=== PATIENT | male | born 1970 | race Caucasian/White ===

== ENCOUNTER 2019-01-06 18:53 | Emergency (ER) | payer OTHER ==
[~2019-01-06] VITALS: Ht 167.6 cm; Wt 68.2 kg
[2019-01-06 18:55] VITALS: Ht 167.6 cm; Wt 68.2 kg
[2019-01-06] MEDS ORDERED: LEVALBUTEROL (NEB) 1.25 MG/0.5 ML AMP INH STA (20:10)
[2019-01-06] MEDS ORDERED: predniSONE 20 MG TAB PO STA (20:10)
[2019-01-06] MEDS ORDERED: IPRATROPIUM (NEB) 0.5 MG/2.5 ML AMP NEB STA (20:10)
[2019-01-06] MEDS ORDERED: ATRO INH (21:33)
[2019-01-06] MEDS ORDERED: PRED20TA PO (21:33)
[2019-01-06] MEDS ORDERED: ALBU2.5V3 NEB (21:33)
[2019-01-06] MEDS ORDERED: SYMB80120 INHALATION (21:33)
--- NOTE | 2019-01-06 21:34 | ERD ---
ER Documentation Chief Complaint Chief Complaint ASTHMA EXCERBATION X2DAYS; WORSE TODAY; USED NEBULIZER 2MINS AGO; WHEEZING ROS All systems reviewed and are negative except as per history of present illness. Medications Home Meds Active Scripts Albuterol Sulfate* (Albuterol Sulfate* Neb) 0.083%-3 Ml Neb, 2.5 MG NEB Q4H PRN for shortness of breath, #30 VIAL Prov:CHON HIDALGO DO 01/06/19 Prednisone (Prednisone) 20 Mg Tab, 40 MG PO DAILY for asthma for 4 Days, #8 TAB Prov:CHON HIDALGO DO 01/06/19 Ipratropium [place]* (Atrovent HFA*) 12.9 Gm Aer.w.adap, 2 PUFF INH Q6 for asthma, #1 EA Prov:CHON HIDALGO DO 01/06/19 Budesonide-Formoterol Fumarate* (Symbicort*) 80-4.5 Inha, 2 PUFFS INHALATION BID for asthma, #1 EACH Prov:CHON HIDALGO DO 01/06/19 Allergies Allergies: Coded Allergies: No Known Allergy (Unverified , 01/06/19) PMhx/Soc History of Surgery: Yes (BROKEN JAW) Hx Respiratory Disorders: Yes (ASTHMA) Hx Alcohol Use: No Hx Substance Use: No Hx Tobacco Use: Yes Smoking Status: Current some day smoker Physical Exam Vitals Vital Signs Date Temp Pulse Resp B/P (MAP) Pulse Ox O2 O2 Flow FiO2 Time Delivery Rate 01/06/19 97.9 72 16 135/74 96 Room Air 21:24 (94) 01/06/19 75 20 97 21 20:43 01/06/19 98.1 110 19 126/86 94 18:55 (99) Physical Exam Const: No acute distress Head: Atraumatic Eyes: Normal Conjunctiva ENT: Normal External Ears, Nose and Mouth. Neck: Full range of motion. No meningismus. Resp: Clear to auscultation bilaterally Cardio: Regular rate and rhythm, no murmurs Abd: Soft, non tender, non distended. Normal bowel sounds Skin: No petechiae or rashes Back: No midline or flank tenderness Ext: No cyanosis, or edema Neur: Awake and alert Psych: Normal Mood and Affect Results 24 hrs Current Medications Medications Dose Sig/[place] Start Time Status Last (Trade) Ordered Route PRN Stop Time Admin Dose Reason Admin Ipratropium 0.5 mg ONCE STAT 01/06/19 DC 01/06/19 [place] NEB 20:10 20:43 (Atrovent 01/06/19 20:12 0.02% (Neb)) Prednisone 60 mg ONCE STAT 01/06/19 DC 01/06/19 (Prednisone) PO 20:10 20:17 01/06/19 20:12 1.25 mg ONCE STAT 01/06/19 DC 01/06/19 Levalbuterol INH 20:10 20:43 (Xopenex 01/06/19 20:12 Neb) Departure Diagnosis: Primary Impression: Asthma with acute exacerbation Asthma severity: mild Asthma persistence: unspecified Qualified Codes: J45.901 - Unspecified asthma with (acute) exacerbation Condition: Fair Patient Instructions: Asthma Medications, Asthma, Acute (Adult) Referrals: [facility] YOU HAVE RECEIVED A MEDICAL SCREENING EXAM AND THE RESULTS INDICATE THAT YOU DO NOT HAVE A CONDITION THAT REQUIRES URGENT TREATMENT IN THE EMERGENCY DEPARTMENT. FURTHER EVALUATION AND TREATMENT OF YOUR CONDITION CAN WAIT UNTIL YOU ARE SEEN IN YOUR DOCTORS OFFICE WITHIN THE NEXT 1-2 DAYS. IT IS YOUR RESPONSIBILITY TO MAKE AN APPOINTMENT FOR FOLOW-UP CARE. IF YOU HAVE A PRIMARY DOCTOR --you should call your primary doctor and schedule an appointment IF YOU DO NOT HAVE A PRIMARY DOCTOR YOU CAN CALL OUR PHYSICIAN REFERRAL HOTLINE AT IF YOU CAN NOT AFFORD TO SEE A PHYSICIAN YOU CAN CHOSE FROM THE FOLLOWING [facility] [address] [facility] [facility] [facility] [address] [facility] [address] [facility] [facility] [address] [facility] [facility] [address] [facility] [facility] [address] [facility]. [facility]. [address] Additional Instructions: Call your primary care doctor TOMORROW for an appointment during the next 1-2 days.See the doctor sooner or return here if your condition worsens before your appointment time. CHON HIDALGO DO Jan 06, 2019 21:34
[2019-01-06 21:37] VITALS: BP 125/73; PULSE 74; RESP 16
== END 2019-01-06 21:38 | disposition home or self-care (01) ==
LOC: FTE 18:53
DX: J45.901 Unspecified asthma with (acute) exacerbation (principal); F17.210 Nicotine dependence, cigarettes, uncomplicated
CPT/HCPCS: 94664; J7512; Z7502; Z7610

== ENCOUNTER 2019-01-13 16:18 | Emergency (ER) | payer OTHER ==
[~2019-01-13] VITALS: Ht 160 cm; Wt 77.0 kg
[~2019-01-13 16:18] MED LIST: ALBU2.5V3 NEB; ATRO INH; DIAZ5TAB PO; DIAZ5TAB4 PO; PRED20TA PO; SYMB80120 INHALATION
[2019-01-13 16:23] VITALS: BP 117/69; PULSE 89; RESP 18; Ht 160 cm; Wt 77.0 kg
--- NOTE | 2019-01-13 16:29 | ERD ---
ER Documentation Chief Complaint Chief Complaint INSOMNIA X 3 DAYS HPI 48-year-old male presents with insomnia for the past 3 days. He states he is tried multiple [id number] medications including Tylenol PM, Benadryl, and NyQuil without any relief. He has no other complaints. Denies any alcohol or drug use. ROS All systems reviewed and are negative except as per history of present illness. Medications Home Meds Active Scripts Diazepam* (Valium*) 5 Mg Tablet, 5 MG PO Q8 PRN for INSOMNIA, #10 TAB Prov:CRISTINA GARRISON PA-C 01/13/19 Diazepam* (Diazepam*) 5 Mg Tablet, 5 MG PO QHS, #10 TAB Prov:CRISTINA GARRISON PA-C 01/13/19 Albuterol Sulfate* (Albuterol Sulfate* Neb) 0.083%-3 Ml Neb, 2.5 MG NEB Q4H PRN for shortness of breath, #30 VIAL Prov:CHON HIDALGO DO 01/06/19 Prednisone (Prednisone) 20 Mg Tab, 40 MG PO DAILY for asthma for 4 Days, #8 TAB Prov:CHON HIDALGO DO 01/06/19 Ipratropium [place]* (Atrovent HFA*) 12.9 Gm Aer.w.adap, 2 PUFF INH Q6 for asthma, #1 EA Prov:CHON HIDALGO DO 01/06/19 Budesonide-Formoterol Fumarate* (Symbicort*) 80-4.5 Inha, 2 PUFFS INHALATION BID for asthma, #1 EACH Prov:CHON HIDALGO DO 01/06/19 Allergies Allergies: Coded Allergies: No Known Allergy (Unverified , 01/06/19) PMhx/Soc History of Surgery: Yes (BROKEN JAW) Hx Respiratory Disorders: Yes (ASTHMA) Hx Alcohol Use: No Hx Substance Use: No Hx Tobacco Use: Yes FmHx Family History: No diabetes Physical Exam Vitals Vital Signs Date Temp Pulse Resp B/P (MAP) Pulse Ox O2 O2 Flow FiO2 Time Delivery Rate 01/13/19 98.0 89 18 117/69 99 16:23 (85) Physical Exam Const: No acute distress Head: Atraumatic Eyes: Normal Conjunctiva ENT: Normal External Ears, Nose and Mouth. Neck: Full range of motion. No meningismus. Resp: Clear to auscultation bilaterally Cardio: Regular rate and rhythm, no murmurs Procedures/MDM Patient has insomnia. I reviewed online cures database and there is no suspicious activity. He states Valium has helped him in the past he was given a prescription for small amount of Valium. Patient counseled regarding my diagnostic impression and care plan. Prior to discharge all questions answered. Pt agrees with treatment plan and understands strict return precautions. Pt is instructed to follow up with primary care provider within 24-48 hours. Precautionary instructions provided including instructions to return to the ER if not improving or for any worsening or changing symptoms or concerns. Departure Diagnosis: Primary Impression: Insomnia Condition: Stable Patient Instructions: Treating Insomnia, Insomnia Additional Instructions: Call your primary care doctor TOMORROW for an appointment during the next 1-2 days.See the doctor sooner or return here if your condition worsens before your appointment time. CRISTINA GARRISON PA-C Jan 13, 2019 16:29
== END 2019-01-13 16:30 | disposition home or self-care (01) ==
LOC: E/R 16:18
DX: G47.00 Insomnia, unspecified (principal); J45.909 Unspecified asthma, uncomplicated
CPT/HCPCS: 99283

== ENCOUNTER 2019-02-01 12:37 | Emergency (ER) | payer OTHER ==
[~2019-02-01] VITALS: Ht 177.8 cm; Wt 66.5 kg
[2019-02-01 12:50] VITALS: BP 133/74; PULSE 88; RESP 18; Ht 177.8 cm; Wt 66.5 kg
== END 2019-02-01 13:00 | disposition home or self-care (01) ==
LOC: E/R 12:37
DX: G47.00 Insomnia, unspecified (principal); J45.909 Unspecified asthma, uncomplicated; F17.210 Nicotine dependence, cigarettes, uncomplicated
CPT/HCPCS: 99283

== ENCOUNTER 2019-03-09 15:05 | Emergency (ER) | payer OTHER ==
[~2019-03-09] VITALS: Ht 172.7 cm; Wt 67.0 kg
[~2019-03-09 15:05] MED LIST changes: +ALBU8.5H8 INH; +MED4DP PO; +NEBU1KIT3 MC
[2019-03-09 15:07] VITALS: BP 131/64; PULSE 87; RESP 20; Ht 172.7 cm; Wt 67.0 kg
[2019-03-09] MEDS ORDERED: ALBUTEROL 0.083% (NEB) 2.5 MG/3 ML AMP NEB STA (16:17)
[2019-03-09] MEDS ORDERED: IPRATROPIUM (NEB) 0.5 MG/2.5 ML AMP NEB STA (16:17)
[2019-03-09] MEDS ORDERED: METHYLPREDNISOLONE 125 MG INJ IM STA (16:17)
== END 2019-03-09 17:23 | disposition home or self-care (01) ==
LOC: FTE 15:05
DX: J45.21 Mild intermittent asthma with (acute) exacerbation (principal); F17.210 Nicotine dependence, cigarettes, uncomplicated
CPT/HCPCS: 94664; J2930; Z7502; Z7610